=== PATIENT | female | born 1960 | race African-American/Black ===

== ENCOUNTER 2016-10-06 19:58 | Inpatient (IN) | payer OTHER ==
[~2016-10-06] VITALS: Ht 157.5 cm; Wt 51.7 kg
[~2016-10-06 19:58] MED LIST: FOLI-43 PO; FURO-152 PO; KDUR10 PO; METO25TA6 PO; MIRT15TA PO; MULT-1146 PO; OMEP20CA4 PO; THIA100T13 PO; TRAM50TA73 PO
[2016-10-06] MEDS ORDERED: MORPHINE SULFATE 4 MG/ML CPJ (NOT FOR IM USE) IV STA (21:24)
[2016-10-06] MEDS ORDERED: ALBUTEROL (0.083%) 2.5MG/3ML NEB HHN STA (21:24)
[2016-10-06] MEDS ORDERED: METHYLPREDNISOLONE SOD SUCC 125 MG/2 ML VIAL IV STA (21:24)
[2016-10-06] MEDS ORDERED: ONDANSETRON HCL 4MG/2ML VIAL IV STA (21:24)
[2016-10-06] MEDS ORDERED: IPRATROPIUM BROMIDE (0.02%) 0.5MG/2.5ML NEB HHN STA (21:24)
[2016-10-06] MEDS ORDERED: LEVOFLOXACIN 750MG PREMIX 150 ML IV ONE (21:30)
[2016-10-06] MEDS ORDERED: IPRATROPIUM/ALBUTEROL 0.5-3(2.5)MG/3ML NEB ONE (22:03)
[2016-10-06] MEDS ORDERED: ALBUTEROL (0.5%) 2.5MG/0.5ML NEB HHN ONE (22:04)
[2016-10-06 22:05] LABS: CHLORIDE 114 mEq/L (98-107); INDEX HEMOLYSI 1 (1-3); INDEX ICTERIC 1 (1-4); INDEX LIPEMIC 1 (1-3); INR 1.3; PARTIAL THROMBOPLASTIN TIME 28.7 sec (24.0-34.0)
[2016-10-06 22:06] LABS: BASOPHILS % 0.7 % (0.0-2.0); EOSINOPHILS % 1.9 % (0.0-5.0); LYMPHOCYTES % 30.1 % (20.0-50.0); MEAN CORPUSCULAR HEMOGLOBIN 31.6 pg (28.0-32.0); MEAN CORPUSCULAR HGB CONC 33.1 g/dL (31.0-37.0); MEAN CORPUSCULAR VOLUME 95.3 fL (81.0-99.0); MEAN PLATELET VOLUME 10.4 fl (7.4-10.4); MONOCYTES % 5.6 % (2.0-8.0); NEUTROPHILS % 61.7 % (40.0-76.0); PLATELET 150 x1000/uL (130-400); RED BLOOD CELL COUNT 2.84 mill/uL (4.2-5.4); WHITE BLOOD COUNT 5.1 x1000/uL (4.5-11.0)
[2016-10-06 22:07] LABS: AMMONIA 110 uMol/L (<32); INDEX HEMOLYSI 1 (1-3)
[2016-10-06 22:12] LABS: ALANINE AMINOTRANSFERASE 26 IU/L (13-61); ALBUMIN 2.6 g/dL (3.4-5.0); ANION GAP 14; CALCIUM 8.4 mg/dL (8.5-10.1); CARBON DIOXIDE 20 mEq/L (21-32); ETHANOL BLOOD 187 mg/dL; LIPASE 279 IU/L (73-393); UREA NITROGEN BLOOD 8 mg/dL (7-21)
[2016-10-06 22:16] LABS: CREATINE KINASE 509 IU/L (26-192); LACTIC ACID 4.1 mmol/L (0.4-2.0); eGFR > 60 mL/min (>60)
[2016-10-06 22:17] LABS: NT PRO B-TYPE NATRIURETIC PEP 46 pg/mL (5-125); TROPONIN I < 0.02 ng/mL (0.00-0.04)
[2016-10-06 23:23] LABS: BG BASE EXCESS -4.7 mmol/L (-2.0-2.0); BG CARBOXYHEMOGLOBIN 0.3 % (0.5-1.5); BG DEOXYHEMOGLOBIN 5.5 % (0.0-5.0); BG FRACTION INSPIRED OXYGEN 21; BG HCO3 ACT 17.2 mmol/L (22.0-26.0); BG METHEMOGLOBIN 0.3 % (0.0-1.5); BG OXYGEN SATURATION 94.5 % (92.0-98.5); BG OXYHEMOGLOBIN 93.9 % (94.0-97.0); BG PCO2 22.4 mmHg (35.0-45.0); BG PH 7.504 (7.350-7.450); BG PO2 77.3 mmHg (75.0-100.0); BG SAMPLE SITE LEFT BRACHIAL; BG TOTAL HEMOGLOBIN 9.3 g/dL (12.0-18.0); BG VENT MODE ROOM AIR
[2016-10-06 23:40] LABS: CLARITY URINE CLEAR (CLEAR); COLOR URINE YELLOW (YELLOW); GLUCOSE URINE NEGATIVE (NEGATIVE); KETONES URINE NEGATIVE (NEGATIVE); LEUKOCYTE ESTERASE URINE NEGATIVE (NEGATIVE); NITRITE URINE NEGATIVE (NEGATIVE); OCCULT BLOOD URINE 2+ (NEGATIVE); PROTEIN URINE NEGATIVE (NEGATIVE); SPECIFIC GRAVITY URINE 1.011 (1.005-1.030)
[2016-10-06 23:43] LABS: BACTERIA URINE NONE SEEN; CALCIUM PHOSPHATE CRYSTALS UR NONE SEEN /lpf; SQUAMOUS EPITHELIAL CELL URINE NONE SEEN /lpf (RARE/1+); WAXY CASTS URINE NONE SEEN /lpf; WBC URINE NONE SEEN /hpf (0-2); YEAST URINE NONE SEEN
[2016-10-07 00:02] LABS: *AMPHETAMINES SCREEN URINE NEGATIVE (NEGATIVE); *BARBITURATES SCREEN URINE NEGATIVE (NEGATIVE); *BENZODIAZEPINES SCREEN URINE NEGATIVE (NEGATIVE); *COCAINE SCREEN URINE NEGATIVE (NEGATIVE); CANNABINOID URINE SCREEN NEGATIVE (NEGATIVE); ECSTASY MDMA SCREEN URINE NEGATIVE (NEGATIVE); METHADONE URINE SCREEN NEGATIVE (NEGATIVE); OPIATES URINE SCREEN NEGATIVE (NEGATIVE); PHENCYCLIDINE URINE SCREEN NEGATIVE (NEGATIVE)
[2016-10-07] MEDS ORDERED: FOLIC ACID 1 MG, THIAMINE HCL 100 MG, MVI, ADULT NO.1 10 ML in DEXTROSE 5% WATER 1,000 ML IV ONE ×4 (00:15)
[2016-10-07 04:16] VITALS: BP 149/85
[2016-10-07] MEDS ORDERED: IPRATROPIUM/ALBUTEROL 0.5-3(2.5)MG/3ML NEB INH PRN (04:30)
[2016-10-07] MEDS ORDERED: ONDANSETRON HCL 4MG/2ML VIAL IV PRN (04:30)
[2016-10-07] MEDS ORDERED: GUAIFENESIN 200MG/10ML SUGAR FREE UDC PO PRN (04:30)
[2016-10-07] MEDS ORDERED: MAGNESIUM/ALUMINUM HYDROXIDE/SIMETHICONE 30ML UDC PO PRN (04:30)
[2016-10-07] MEDS ORDERED: POTASSIUM CHLORIDE 20MEQ TABLET SR PO NR (04:59)
[2016-10-07 05:43] LABS: MAGNESIUM 1.7 mg/dL (1.8-2.4)
[2016-10-07] MEDS ORDERED: MAGNESIUM 2 G PREMIX 50 ML IV NR (06:00)
[2016-10-07] MEDS ORDERED: IPRATROPIUM/ALBUTEROL 0.5-3(2.5)MG/3ML NEB HHN SCH (06:00)
[2016-10-07] MEDS: SODIUM CHLORIDE 0.9% INJ 3ML FLUSH IVF SCH ×3 (06:30→21:54)
[2016-10-07] MEDS ORDERED: FUROSEMIDE 40MG/4ML VIAL IVP SCH (07:00)
[2016-10-07 08:00] VITALS: BP 153/90
[2016-10-07] MEDS: SPIRONOLACTONE 50MG TABLET PO SCH (08:52)
[2016-10-07] MEDS: OMEPRAZOLE 20MG CAPSULE EXTENDED RELEASE PO SCH (08:53)
[2016-10-07] MEDS: POTASSIUM CHLORIDE 20MEQ TABLET SR PO SCH (08:53)
[2016-10-07] MEDS: THIAMINE HCL 100MG TABLET PO SCH (08:53)
[2016-10-07] MEDS: LACTULOSE 20G/30ML UDC PO SCH ×3 (08:54→21:51)
[2016-10-07] MEDS ORDERED: LACTULOSE 20G/30ML UDC PO SCH (09:00)
[2016-10-07] MEDS: ACETAMINOPHEN 325MG TABLET PO PRN ×3 (09:01→21:51)
[2016-10-07 12:00] VITALS: BP 136/89
[2016-10-07] MEDS: AMLODIPINE 5MG TABLET PO SCH (15:37)
[2016-10-07 16:00] VITALS: BP 136/90
[2016-10-07] MEDS: IPRATROPIUM/ALBUTEROL 0.5-3(2.5)MG/3ML NEB HHN SCH ×2 (17:12→20:37)
[2016-10-07] MEDS ORDERED: IPRATROPIUM/ALBUTEROL 0.5-3(2.5)MG/3ML NEB HHN PRN (18:15)
[2016-10-07 20:00] VITALS: BP 150/86
[2016-10-07] MEDS: DIPHENHYDRAMINE 50MG/ML VIAL IV PRN (23:11)
[2016-10-08] VITALS: BP 130/82
[2016-10-08] MEDS: IPRATROPIUM/ALBUTEROL 0.5-3(2.5)MG/3ML NEB HHN SCH ×4 (01:09→20:26)
[2016-10-08 04:00] VITALS: BP 126/95
[2016-10-08 06:25] LABS: AMMONIA 85 uMol/L (<32); INDEX HEMOLYSI 2 (1-3)
[2016-10-08] MEDS: OMEPRAZOLE 20MG CAPSULE EXTENDED RELEASE PO SCH (06:32)
[2016-10-08] MEDS: ACETAMINOPHEN 325MG TABLET PO PRN ×2 (06:32→17:35)
[2016-10-08] MEDS: LACTULOSE 20G/30ML UDC PO SCH ×3 (06:32→21:03)
[2016-10-08] MEDS: SODIUM CHLORIDE 0.9% INJ 3ML FLUSH IVF SCH ×3 (06:36→21:04)
[2016-10-08 06:44] LABS: BASOPHILS % 0.8 % (0.0-2.0); EOSINOPHILS % 0.8 % (0.0-5.0); HEMATOCRIT. 27.9 % (36.0-48.0); HEMOGLOBIN. 9.5 g/dL (12.0-16.0); LYMPHOCYTES % 21.3 % (20.0-50.0); MEAN CORPUSCULAR HEMOGLOBIN 32.1 pg (28.0-32.0); MEAN CORPUSCULAR VOLUME 94.4 fL (81.0-99.0); MEAN PLATELET VOLUME 10.8 fl (7.4-10.4); MONOCYTES % 6.2 % (2.0-8.0); NEUTROPHILS % 70.9 % (40.0-76.0); PLATELET 109 x1000/uL (130-400); RED BLOOD CELL COUNT 2.95 mill/uL (4.2-5.4); RED CELL DISTRIBUTION WIDTH 16.8 % (11.6-14.6); WHITE BLOOD COUNT 3.9 x1000/uL (4.5-11.0)
[2016-10-08 06:50] LABS: CHLORIDE 108 mEq/L (98-107); INDEX HEMOLYSI 1 (1-3); INDEX ICTERIC 1 (1-4); INDEX LIPEMIC 1 (1-3)
[2016-10-08 07:04] LABS: ANION GAP 16; CALCIUM 8.2 mg/dL (8.5-10.1); CARBON DIOXIDE 22 mEq/L (21-32); MAGNESIUM 1.7 mg/dL (1.8-2.4); PHOSPHORUS 3.3 mg/dL (2.5-4.9); UREA NITROGEN BLOOD 9 mg/dL (7-21); eGFR > 60 mL/min (>60)
[2016-10-08 08:00] VITALS: BP 125/83
[2016-10-08] MEDS: SPIRONOLACTONE 50MG TABLET PO SCH (09:01)
[2016-10-08] MEDS: THIAMINE HCL 100MG TABLET PO SCH (09:01)
[2016-10-08] MEDS: AMLODIPINE 5MG TABLET PO SCH (09:01)
[2016-10-08] MEDS: POTASSIUM CHLORIDE 20MEQ TABLET SR PO SCH (09:01)
[2016-10-08] MEDS: DIPHENHYDRAMINE 50MG/ML VIAL IV PRN ×2 (09:01→21:20)
[2016-10-08 11:58] VITALS: BP 119/75
[2016-10-08] MEDS ORDERED: POTASSIUM CHLORIDE 20MEQ TABLET SR PO NR (12:00)
[2016-10-08] MEDS: VANCOMYCIN HCL 1000 MG/20 ML ORAL PO SCH ×2 (12:53→17:29)
[2016-10-08] MEDS ORDERED: MAGNESIUM 1 G PREMIX 100 ML IV NR (13:00)
[2016-10-08] MEDS: CHLORDIAZEPOXIDE 25MG CAPSULE PO SCH ×2 (15:23→21:03)
[2016-10-08 15:41] VITALS: BP 111/72
[2016-10-08 20:00] VITALS: BP 119/76
[2016-10-09] VITALS: BP 101/67
[2016-10-09] MEDS: IPRATROPIUM/ALBUTEROL 0.5-3(2.5)MG/3ML NEB HHN SCH ×4 (00:33→21:50)
[2016-10-09 04:00] VITALS: BP 109/74
[2016-10-09 05:53] LABS: BASOPHILS % 0.8 % (0.0-2.0); EOSINOPHILS % 2.7 % (0.0-5.0); HEMATOCRIT. 27.5 % (36.0-48.0); HEMOGLOBIN. 9.1 g/dL (12.0-16.0); LYMPHOCYTES % 19.2 % (20.0-50.0); MEAN CORPUSCULAR HEMOGLOBIN 31.2 pg (28.0-32.0); MEAN CORPUSCULAR HGB CONC 33.2 g/dL (31.0-37.0); MEAN CORPUSCULAR VOLUME 94.1 fL (81.0-99.0); MEAN PLATELET VOLUME 10.9 fl (7.4-10.4); MONOCYTES % 5.9 % (2.0-8.0); NEUTROPHILS % 71.4 % (40.0-76.0); PLATELET 105 x1000/uL (130-400); RED BLOOD CELL COUNT 2.93 mill/uL (4.2-5.4); RED CELL DISTRIBUTION WIDTH 16.7 % (11.6-14.6); WHITE BLOOD COUNT 4.3 x1000/uL (4.5-11.0)
[2016-10-09] MEDS: SODIUM CHLORIDE 0.9% INJ 3ML FLUSH IVF SCH ×3 (06:00→21:26)
[2016-10-09 06:09] LABS: CHLORIDE 105 mEq/L (98-107); INDEX HEMOLYSI 1 (1-3); INDEX ICTERIC 1 (1-4); INDEX LIPEMIC 1 (1-3)
[2016-10-09 06:14] LABS: ALANINE AMINOTRANSFERASE 19 IU/L (13-61); ALBUMIN 2.5 g/dL (3.4-5.0); ANION GAP 14; CALCIUM 8.6 mg/dL (8.5-10.1); CARBON DIOXIDE 23 mEq/L (21-32); MAGNESIUM 1.8 mg/dL (1.8-2.4); UREA NITROGEN BLOOD 10 mg/dL (7-21); eGFR > 60 mL/min (>60)
[2016-10-09] MEDS: CHLORDIAZEPOXIDE 25MG CAPSULE PO SCH ×3 (07:07→21:27)
[2016-10-09] MEDS: LACTULOSE 20G/30ML UDC PO SCH ×3 (07:07→21:27)
[2016-10-09] MEDS: VANCOMYCIN HCL 1000 MG/20 ML ORAL PO SCH ×3 (07:08→17:36)
[2016-10-09 08:00] VITALS: BP 105/65
[2016-10-09] MEDS: THIAMINE HCL 100MG TABLET PO SCH (08:32)
[2016-10-09] MEDS: FAMOTIDINE 20MG TABLET PO SCH ×2 (08:32→21:27)
[2016-10-09] MEDS: AMLODIPINE 5MG TABLET PO SCH (08:32)
[2016-10-09] MEDS: SPIRONOLACTONE 50MG TABLET PO SCH (08:32)
[2016-10-09] MEDS: POTASSIUM CHLORIDE 20MEQ TABLET SR PO SCH (08:33)
[2016-10-09 12:00] VITALS: BP 92/63
[2016-10-09] MEDS: ACETAMINOPHEN 325MG TABLET PO PRN ×2 (13:57→21:26)
[2016-10-09] MEDS: DIPHENHYDRAMINE 50MG/ML VIAL IV PRN ×2 (13:57→22:22)
[2016-10-09 16:00] VITALS: BP 84/52
[2016-10-09 20:00] VITALS: BP 94/71
[2016-10-10] VITALS: BP 190/61
[2016-10-10] MEDS: VANCOMYCIN HCL 1000 MG/20 ML ORAL PO SCH ×3 (00:08→14:34)
[2016-10-10] MEDS: IPRATROPIUM/ALBUTEROL 0.5-3(2.5)MG/3ML NEB HHN SCH ×4 (02:58→21:32)
[2016-10-10 04:00] VITALS: BP 111/65
[2016-10-10] MEDS: CHLORDIAZEPOXIDE 25MG CAPSULE PO SCH ×3 (05:29→21:13)
[2016-10-10] MEDS: SODIUM CHLORIDE 0.9% INJ 3ML FLUSH IVF SCH ×3 (05:29→21:14)
[2016-10-10] MEDS: LACTULOSE 20G/30ML UDC PO SCH ×3 (05:29→21:13)
[2016-10-10 08:00] VITALS: BP 93/48
[2016-10-10] MEDS: SPIRONOLACTONE 50MG TABLET PO SCH (09:00)
[2016-10-10] MEDS: AMLODIPINE 5MG TABLET PO SCH (09:00)
[2016-10-10] MEDS: POTASSIUM CHLORIDE 20MEQ TABLET SR PO SCH (09:00)
[2016-10-10] MEDS: THIAMINE HCL 100MG TABLET PO SCH (09:34)
[2016-10-10] MEDS: FAMOTIDINE 20MG TABLET PO SCH ×2 (09:34→21:13)
[2016-10-10 12:00] VITALS: BP 94/45
[2016-10-10 16:00] VITALS: BP 93/58
[2016-10-10 20:00] VITALS: BP 109/65
[2016-10-10] MEDS: DIPHENHYDRAMINE 50MG/ML VIAL IV PRN (21:18)
[2016-10-11] VITALS: BP 115/69
[2016-10-11] MEDS: VANCOMYCIN HCL 1000 MG/20 ML ORAL PO SCH ×3 (02:06→11:42)
[2016-10-11] MEDS: IPRATROPIUM/ALBUTEROL 0.5-3(2.5)MG/3ML NEB HHN SCH ×3 (02:40→14:10)
[2016-10-11 04:00] VITALS: BP 125/71
[2016-10-11] MEDS: LACTULOSE 20G/30ML UDC PO SCH ×2 (05:29→13:56)
[2016-10-11] MEDS: CHLORDIAZEPOXIDE 25MG CAPSULE PO SCH ×2 (05:29→13:57)
[2016-10-11] MEDS: SODIUM CHLORIDE 0.9% INJ 3ML FLUSH IVF SCH ×2 (05:30→13:57)
[2016-10-11] MEDS: ACETAMINOPHEN 325MG TABLET PO PRN (05:46)
[2016-10-11 05:50] LABS: CHLORIDE 102 mEq/L (98-107); INDEX HEMOLYSI 1 (1-3); INDEX ICTERIC 1 (1-4); INDEX LIPEMIC 1 (1-3)
[2016-10-11] MEDS: DIPHENHYDRAMINE 50MG/ML VIAL IV PRN (05:54)
[2016-10-11 05:57] LABS: ANION GAP 12; CALCIUM 8.6 mg/dL (8.5-10.1); CARBON DIOXIDE 26 mEq/L (21-32); UREA NITROGEN BLOOD 13 mg/dL (7-21); eGFR > 60 mL/min (>60)
[2016-10-11 06:40] LABS: BASOPHILS % 0.6 % (0.0-2.0); DIFFERENTIAL COMMENT 0; EOSINOPHILS % 3.5 % (0.0-5.0); HEMOGLOBIN. 9.5 g/dL (12.0-16.0); LYMPHOCYTES % 20.3 % (20.0-50.0); MEAN CORPUSCULAR HEMOGLOBIN 32.1 pg (28.0-32.0); MEAN CORPUSCULAR HGB CONC 33.9 g/dL (31.0-37.0); MEAN CORPUSCULAR VOLUME 94.6 fL (81.0-99.0); MEAN PLATELET VOLUME 11.2 fl (7.4-10.4); MONOCYTES % 9.3 % (2.0-8.0); NEUTROPHILS % 66.3 % (40.0-76.0); PLATELET 90 x1000/uL (130-400); RED BLOOD CELL COUNT 2.96 mill/uL (4.2-5.4); RED CELL DISTRIBUTION WIDTH 15.9 % (11.6-14.6); WHITE BLOOD COUNT 3.7 x1000/uL (4.5-11.0)
[2016-10-11 08:00] VITALS: BP 91/51
[2016-10-11] MEDS: AMLODIPINE 5MG TABLET PO SCH (08:11)
[2016-10-11] MEDS: SPIRONOLACTONE 50MG TABLET PO SCH (08:12)
[2016-10-11] MEDS: FAMOTIDINE 20MG TABLET PO SCH (08:38)
[2016-10-11] MEDS: POTASSIUM CHLORIDE 20MEQ TABLET SR PO SCH (08:38)
[2016-10-11] MEDS: THIAMINE HCL 100MG TABLET PO SCH (08:38)
[2016-10-11 12:00] VITALS: BP 96/64
[2016-10-11 16:00] VITALS: BP 117/74
[2016-10-11 16:50] VITALS: BP 117/74
== END 2016-10-11 18:25 | disposition home or self-care (01) | DRG 194 ==
LOC: ER 19:58 → 6WST 10-07 00:03
PROVIDERS: ADMIT Internal Medicine; ATTEND Internal Medicine
DX: I50.33 Acute on chronic diastolic (congestive) heart failure (principal); J96.00 Acute respiratory failure, unspecified whether with hypoxia or hypercapnia; G93.41 Metabolic encephalopathy; E87.2 Acidosis; E43 Unspecified severe protein-calorie malnutrition; E83.42 Hypomagnesemia; M62.82 Rhabdomyolysis; K70.30 Alcoholic cirrhosis of liver without ascites; I27.2 Other secondary pulmonary hypertension; E87.6 Hypokalemia; D63.8 Anemia in other chronic diseases classified elsewhere; F10.239 Alcohol dependence with withdrawal, unspecified; I10 Essential (primary) hypertension; B96.89 Other specified bacterial agents as the cause of diseases classified elsewhere; F17.210 Nicotine dependence, cigarettes, uncomplicated; K21.9 Gastro-esophageal reflux disease without esophagitis; J45.909 Unspecified asthma, uncomplicated; W19.XXXA Unspecified fall, initial encounter; Z88.0 Allergy status to penicillin; Z82.49 Family history of ischemic heart disease and other diseases of the circulatory system; Z68.20 Body mass index [BMI] 20.0-20.9, adult
CPT/HCPCS: 36415; 36600; 70450; 71010; 80048; 80053; 80305; 81001; 82140; 82375; 82550; 82805; 83605; 83690; 83735; 83880; 84100; 84443; 84484; 85025; 85610; 85730; 87040; 87086; 87493; 93005; 93970; 94640; 94644; 96365; 96366; 96375; 97116; 97162; 97167; 97530; 99285; A6261; G0482; J1200; J1940; J1956; J2270; J2405; J2930; J3370; J3411; J3475; J3490; J7050; J7070; J7611; J7620

== ENCOUNTER 2016-10-12 11:38 | Emergency (ER) | payer OTHER ==
[~2016-10-12] VITALS: Ht 167.6 cm; Wt 80.0 kg
[2016-10-12] MEDS ORDERED: KETOROLAC 60MG/2ML VIAL IM ONE (15:30)
[2016-10-13 05:57] VITALS: BP 118/61
== END 2016-10-13 06:40 | disposition home or self-care (01) ==
LOC: ER 11:50
DX: S00.03XA Contusion of scalp, initial encounter (principal); T51.0X1A Toxic effect of ethanol, accidental (unintentional), initial encounter; W07.XXXA Fall from chair, initial encounter; Y93.89 Activity, other specified; Y92.89 Other specified places as the place of occurrence of the external cause; F19.10 Other psychoactive substance abuse, uncomplicated; J45.909 Unspecified asthma, uncomplicated; I10 Essential (primary) hypertension; K21.9 Gastro-esophageal reflux disease without esophagitis; Z88.0 Allergy status to penicillin
CPT/HCPCS: 36415; 70450; 96372; 99285; G0482; J1885; Z7610

== ENCOUNTER 2016-10-14 07:17 | Emergency (ER) | payer OTHER ==
[~2016-10-14] VITALS: Ht 167.6 cm; Wt 52.0 kg
[2016-10-14 07:19] VITALS: BP 113/81
== END 2016-10-14 11:44 | disposition left against medical advice (07) ==
LOC: ER 07:35
DX: Z00.00 Encounter for general adult medical examination without abnormal findings (principal); Z53.21 Procedure and treatment not carried out due to patient leaving prior to being seen by health care provider
CPT/HCPCS: J7030

== ENCOUNTER 2016-10-14 13:58 | Emergency (ER) | payer OTHER ==
[~2016-10-14] VITALS: Ht 167.6 cm; Wt 72.0 kg
[2016-10-14] MEDS ORDERED: KETOROLAC 30MG/ML VIAL IM ONE (17:00)
[2016-10-14 17:08] VITALS: BP 137/77
== END 2016-10-14 17:49 | disposition home or self-care (01) ==
LOC: ER 16:51
DX: S00.93XA Contusion of unspecified part of head, initial encounter (principal); J45.909 Unspecified asthma, uncomplicated; K21.9 Gastro-esophageal reflux disease without esophagitis; F17.210 Nicotine dependence, cigarettes, uncomplicated; Z88.0 Allergy status to penicillin; Z79.1 Long term (current) use of non-steroidal anti-inflammatories (NSAID); Z79.899 Other long term (current) drug therapy; W19.XXXA Unspecified fall, initial encounter; Y93.89 Activity, other specified; Y92.89 Other specified places as the place of occurrence of the external cause; Y99.8 Other external cause status
CPT/HCPCS: 96372; 99283; J1885